=== PATIENT | male | born 1970 | race Caucasian/White ===

== ENCOUNTER 2017-10-05 06:40 | Emergency (ER) | payer OTHER ==
[2017-10-05 07:13] LABS: Basophils % (A) 0 %; Eosinophils # (A) 0.3 k/uL (0-0.7); Eosinophils % (A) 3 %; HCT 41.5 % (39.0-53.0); HGB 14.2 gm/dL (13.0-17.5); Lymphocytes # (A) 1.5 k/uL (1.0-4.8); Lymphocytes % (A) 19 %; MCH 29.3 pg (25.0-35.0); MCHC 34.2 g/dL (31.0-37.0); MCV 85.5 fL (80.0-100.0); Mean Platelet Volume 6.6; Monocytes # (A) 0.6 k/uL (0-1.0); Monocytes % (A) 7 %; Neutrophils # (A) 5.4 k/uL (1.3-7.7); Neutrophils % (A) 68 %; Platelet Count 346 k/uL (150-450); RBC 4.85 m/uL (4.30-5.90); WBC 7.9 k/uL (3.8-10.6)
[2017-10-05 07:19] LABS: ALT 52 U/L (21-72); AST 28 U/L (17-59); Albumin 4.8 g/dL (3.5-5.0); Alkaline Phosphatase 93 U/L (38-126); Amylase 41 U/L (30-110); Anion Gap 15 mmol/L; Blood Urea Nitrogen 23 mg/dL (9-20); Calcium 9.7 mg/dL (8.4-10.2); Carbon Dioxide 26 mmol/L (22-30); Chloride 103 mmol/L (98-107); Glucose 189 mg/dL (74-99); Lipase 69 U/L (23-300); Sodium 144 mmol/L (137-145); Total Bilirubin 0.7 mg/dL (0.2-1.3); Total Protein 7.8 g/dL (6.3-8.2)
--- NOTE | 2017-10-05 07:21 | XR ---
EXAMINATION TYPE: XR KUB , 2 VIEWS DATE OF EXAM ORDERED: 10/05/2017 HISTORY: Pain. COMPARISON: None. FINDINGS: The lung bases are clear. The abdominal gas pattern is normal. There is no evidence of obstruction or free air. No unusual calc ifications are seen. IMPRESSION: NO ACUTE INTRA-ABDOMINAL ABNORMALITY.
[2017-10-05 07:30] LABS: Creatine Kinase 218 U/L (55-170)
[2017-10-05] MEDS ORDERED: KETOROLAC 30 MG/ML 1 ML VIAL IVP STA (07:35)
--- NOTE | 2017-10-05 07:39 | ED ---
Back Pain HPI - General Chief Complaint: Back Pain/Injury Stated Complaint: Back pain Time Seen by Provider: 10/05/17 07:00 Source: family, EMS, RN notes reviewed Limitations: no limitations - History of Present Illness Initial Comments: This is a 47-year-old male with a benign history states he woke up in the bathroom around 5 AM this morning he started developing right CVA area pain does seem to radiate around his right lower ribs to his right upper quadrant area. He has some dry heaves and nausea some sweating no fevers chills no cough phlegm production. He does state he has a prior history kidney stones. He's not sure whether this feels like his previous history. No heart or lung disease. Denies drinking alcohol. No other modifying factors at this time. He states his pain is about 3-4/10 MD Complaint: back pain, other - Related Data Home Medications Medication Instructions Recorded Confirmed metFORMIN HCL [Glucophage Xr] 500 mg PO BID 10/05/17 10/05/17 Previous Rx's Medication Instructions Recorded Ibuprofen 800 mg PO Q6HR PRN #20 tablet 10/05/17 Tamsulosin HCl [Flomax] 0.4 mg PO DAILY #7 cap 10/05/17 Allergies Allergy/AdvReac Type Severity Reaction Status Date / Time No Known Allergies Allergy Verified 10/05/17 06:47 Review of Systems ROS Statement: Those systems with pertinent positive or pertinent negative responses have been documented in the HPI. ROS Other: All systems not noted in ROS Statement are negative. Past Medical History Past Medical History: Diabetes Mellitus History of Any Multi-Drug Resistant Organisms: None Reported Past Surgical History: Ear Surgery, Orthopedic Surgery Past Psychological History: No Psychological Hx Reported Smoking Status: Former smoker Past Alcohol Use History: None Reported Past Drug Use History: None Reported General Exam - General Exam Comments Initial Comments: This is a well-developed well-nourished awake alert oriented times 3 male Limitations: no limitations General appearance: alert, in no apparent distress Head exam: Present: atraumatic, normocephalic, normal inspection Eye exam: Present: normal appearance, PERRL, EOMI. Absent: scleral icterus, conjunctival injection, periorbital swelling ENT exam: Present: normal exam, mucous membranes moist Neck exam: Present: normal inspection. Absent: tenderness, meningismus, lymphadenopathy Respiratory exam: Present: normal lung sounds bilaterally. Absent: respiratory distress, wheezes, rales, rhonchi, stridor Cardiovascular Exam: Present: regular rate, normal rhythm, normal heart sounds. Absent: systolic murmur, diastolic murmur, rubs, gallop, clicks GI/Abdominal exam: Present: soft, normal bowel sounds. Absent: distended, tenderness, guarding, rebound, rigid Extremities exam: Present: normal inspection, full ROM, normal capillary refill. Absent: tenderness, pedal edema, joint swelling, calf tenderness Back exam: Present: normal inspection Neurological exam: Present: alert, oriented X3, CN II-XII intact Psychiatric exam: Present: normal affect, normal mood Skin exam: Present: warm, dry, intact, normal color. Absent: rash Course Vital Signs 10/05/17 10/05/17 06:43 09:01 Temperature 97 F L Pulse Rate 57 L 56 L Respiratory 20 16 Rate Blood Pressure 151/92 148/70 O2 Sat by Pulse 99 97 Oximetry Medical Decision Making - Medical Decision Making The patient remains pain-free since his medication. The presentation is likely secondary to a kidney stone or renal colic patient be discharged on appropriate medication he is a follow-up with his doctor and return when necessary - Lab Data Result diagrams: 10/05/17 06:03 10/05/17 06:03 Lab Results 10/05/17 10/05/17 10/05/17 Range/Units 06:03 06:03 06:03 WBC 7.9 (3.8-10.6) k/uL RBC 4.85 (4.30-5.90) m/uL Hgb 14.2 (13.0-17.5) gm/dL Hct 41.5 (39.0-53.0) % MCV 85.5 (80.0-100.0) fL MCH 29.3 (25.0-35.0) pg MCHC 34.2 (31.0-37.0) g/dL RDW 13.0 (11.5-15.5) % Plt Count 346 (150-450) k/uL Neutrophils % 68 % Lymphocytes % 19 % Monocytes % 7 % Eosinophils % 3 % Basophils % 0 % Neutrophils # 5.4 (1.3-7.7) k/uL Lymphocytes # 1.5 (1.0-4.8) k/uL Monocytes # 0.6 (0-1.0) k/uL Eosinophils # 0.3 (0-0.7) k/uL Basophils # 0.0 (0-0.2) k/uL Sodium 144 (137-145) mmol/L Potassium 4.0 (3.5-5.1) mmol/L Chloride 103 (98-107) mmol/L Carbon Dioxide 26 (22-30) mmol/L Anion Gap 15 mmol/L BUN 23 H (9-20) mg/dL Creatinine 0.94 (0.66-1.25) mg/dL Est GFR (CKD-EPI)AfAm >90 (>60 ml/min/1.73 sqM) Est GFR (CKD-EPI)NonAf >90 (>60 ml/min/1.73 sqM) Glucose 189 H (74-99) mg/dL Plasma Lactic Acid Garcia (0.7-2.0) mmol/L Calcium 9.7 (8.4-10.2) mg/dL Magnesium (1.6-2.3) mg/dL Total Bilirubin 0.7 (0.2-1.3) mg/dL AST 28 (17-59) U/L ALT 52 (21-72) U/L Alkaline Phosphatase 93 (38-126) U/L Total Creatine Kinase 218 H (55-170) U/L CK-MB (CK-2) 2.7 H* (0.0-2.4) ng/mL CK-MB (CK-2) Rel Index 1.2 Troponin I <0.012 (0.000-0.034) ng/mL Total Protein 7.8 (6.3-8.2) g/dL Albumin 4.8 (3.5-5.0) g/dL Amylase 41 (30-110) U/L Lipase 69 (23-300) U/L Urine Color Urine Appearance (Clear) Urine pH (5.0-8.0) Ur Specific [place] (1.001-1.035) Urine Protein (Negative) Urine Glucose (UA) (Negative) Urine Ketones (Negative) Urine Blood (Negative) Urine Nitrite (Negative) Urine Bilirubin (Negative) Urine Urobilinogen (<2.0) mg/dL Ur Leukocyte Esterase (Negative) 10/05/17 10/05/17 10/05/17 Range/Units 06:03 06:03 09:08 WBC (3.8-10.6) k/uL RBC (4.30-5.90) m/uL Hgb (13.0-17.5) gm/dL Hct (39.0-53.0) % MCV (80.0-100.0) fL MCH (25.0-35.0) pg MCHC (31.0-37.0) g/dL RDW (11.5-15.5) % Plt Count (150-450) k/uL Neutrophils % % Lymphocytes % % Monocytes % % Eosinophils % % Basophils % % Neutrophils # (1.3-7.7) k/uL Lymphocytes # (1.0-4.8) k/uL Monocytes # (0-1.0) k/uL Eosinophils # (0-0.7) k/uL Basophils # (0-0.2) k/uL Sodium (137-145) mmol/L Potassium (3.5-5.1) mmol/L Chloride (98-107) mmol/L Carbon Dioxide (22-30) mmol/L Anion Gap mmol/L BUN (9-20) mg/dL Creatinine (0.66-1.25) mg/dL Est GFR (CKD-EPI)AfAm (>60 ml/min/1.73 sqM) Est GFR (CKD-EPI)NonAf (>60 ml/min/1.73 sqM) Glucose (74-99) mg/dL Plasma Lactic Acid Garcia 1.3 (0.7-2.0) mmol/L Calcium (8.4-10.2) mg/dL Magnesium 2.1 (1.6-2.3) mg/dL Total Bilirubin (0.2-1.3) mg/dL AST (17-59) U/L ALT (21-72) U/L Alkaline Phosphatase (38-126) U/L Total Creatine Kinase (55-170) U/L CK-MB (CK-2) (0.0-2.4) ng/mL CK-MB (CK-2) Rel Index Troponin I (0.000-0.034) ng/mL Total Protein (6.3-8.2) g/dL Albumin (3.5-5.0) g/dL Amylase (30-110) U/L Lipase (23-300) U/L Urine Color Yellow Urine Appearance Clear (Clear) Urine pH 5.0 (5.0-8.0) Ur Specific [place] 1.023 (1.001-1.035) Urine Protein Negative (Negative) Urine Glucose (UA) 4+ H (Negative) Urine Ketones Negative (Negative) Urine Blood Negative (Negative) Urine Nitrite Negative (Negative) Urine Bilirubin Negative (Negative) Urine Urobilinogen <2.0 (<2.0) mg/dL Ur Leukocyte Esterase Negative (Negative) - EKG Data -: EKG Interpreted by Ne EKG shows normal: sinus rhythm (Sinus bradycardia rate of 57 first-degree AV block WV interval to 44 QRS 102 QT since QTC of 4:30/[address]-T wave changes.) - Radiology Data Radiology results: report reviewed (Did review the imaging and reports no acute findings.), image reviewed Disposition Clinical Impression: Renal colic on right side, Flank pain Disposition: HOME SELF-CARE Condition: Good Instructions: Renal Colic (ED) Prescriptions: Ibuprofen 800 mg PO Q6HR PRN #20 tablet PRN Reason: Pain Tamsulosin HCl [Flomax] 0.4 mg PO DAILY #7 cap Is patient prescribed a controlled substance at d/c from ED?: No Referrals: Jeremy Simeon DO [Primary Care Provider] - 1-2 days
[2017-10-05 07:43] LABS: Troponin I <0.012 ng/mL (0.000-0.034)
[2017-10-05 07:47] LABS: Creatine Kinase MB 2.7 ng/mL (0.0-2.4)
--- NOTE | 2017-10-05 07:47 | XR ---
EXAMINATION TYPE: XR chest 2V DATE OF EXAM: 10/05/2017 HISTORY: cough. REFERENCE: Previous study dated 08/14/2013. FINDINGS: The lungs are mildly overinflated. The lungs are clear. Pleural space are clear. The heart is not enlarged. IMPRESSION: PLEASE CORRELATE FOR COPD.
[2017-10-05 09:02] VITALS: BP 148/70; PULSE 56; RESP 16
[2017-10-05 09:18] LABS: Appearance,Urine Clear (Clear); Bilirubin,Urine Negative (Negative); Blood,Urine Negative (Negative); Color,Urine Yellow; Glucose,Urine (UA) 4+ (Negative); Ketones,Urine Negative (Negative); Leukocyte Esterase,Urine Negative (Negative); Nitrite,Urine Negative (Negative); Protein,Urine Negative (Negative); Specific Gravity,Urine 1.023 (1.001-1.035); Urobilinogen,Urine <2.0 mg/dL (<2.0)
[2017-10-05 10:01] VITALS: TEMP 97.8
== END 2017-10-05 09:59 | disposition home or self-care (01) ==
LOC: EC 06:40
DX: N23 Unspecified renal colic (principal); I44.0 Atrioventricular block, first degree; R00.1 Bradycardia, unspecified; E11.9 Type 2 diabetes mellitus without complications; Z87.891 Personal history of nicotine dependence; Z79.84 Long term (current) use of oral hypoglycemic drugs
CPT/HCPCS: 36415; 93005; 80053; 82150; 82550; 82553; 83605; 83690; 83735; 84484; 85025; 81003; 71046; 74018; 99284; 96374; J1885

== ENCOUNTER 2017-10-16 08:01 | Day surgery (SDC) | payer OTHER ==
[2017-10-10 14:22] VITALS: BMI 26.9
--- NOTE | 2017-10-16 07:44 | P.GSHP ---
History of Present Illness H&P Date: 10/16/17 Chief Complaint: Right upper quadrant pain This is a 47-year-old male with complaints of right upper quadrant pain. Patient presents today for laparoscopic ostectomy. His recent HIDA scan shows an abnormal ejection fraction consistent with biliary dyskinesia and chronic cholecystitis. Past Medical History Past Medical History: Diabetes Mellitus Additional Past Medical History / Comment(s): gallstones History of Any Multi-Drug Resistant Organisms: None Reported Past Surgical History: Ear Surgery, Orthopedic Surgery Additional Past Surgical History / Comment(s): lt arm sx-has 2 steel plates. bone marrow aspiration from hip to lt arm. rt hydrocele sx Past Anesthesia/Blood Transfusion Reactions: Previous Problems w/ Anesthesia Additional Past Anesthesia/Blood Transfusion Reaction / Comment(s): SLOW TO WAKE UP FROM ANESTHESIA Smoking Status: Former smoker - Past Family History Father Family Medical History: Cancer Sister(s) Family Medical History: Cancer Medications and Allergies Home Medications Medication Instructions Recorded Confirmed Type Ibuprofen 800 mg PO Q6HR PRN #20 tablet 10/05/17 10/10/17 Rx metFORMIN HCL [Glucophage Xr] 500 mg PO BID 10/05/17 10/10/17 History Allergies Allergy/AdvReac Type Severity Reaction Status Date / Time No Known Allergies Allergy Verified 10/10/17 14:15 Surgical - Exam - General well developed, no distress - Eyes PERRL - ENT normal pinna - Neck no masses - Respiratory normal expansion - Cardiovascular Rhythm: regular - Abdomen Abdomen: soft, non tender Assessment and Plan Assessment: Right upper quadrant pain Chronic cholecystitis We'll perform laparoscopic cholecystectomy.
[~2017-10-16 08:01] MED LIST: DEXAMETHASONE SOD PHOSPHATE 10 MG/ML 1 ML VIAL IV ONE; HEPARIN SODIUM,PORCINE 5,000 UNIT/ML 1 ML VIAL SQ ONE; HYDROmorphone 0.5 MG/0.5 ML SYRINGE IVP PRN; LACTATED RINGERS 1,000 ML IV SCH; MIDAZOLAM 2 MG/2 ML VIAL IV PRN; ONDANSETRON 4 MG/2 ML VIAL IVP ONE; ceFAZolin IN SWFI 2 GM/20 ML SYRINGE IVP ONE
[2017-10-16 08:28] LABS: Glucose,Whole Blood 121 mg/dL (75-99)
[2017-10-16] MEDS ORDERED: LIDOCAINE 1% 20 ML VIAL (10MG/ML) FOR IV START INTRADERMA ONE (08:30)
[2017-10-16] MEDS ORDERED: fentaNYL (PF) 50 MCG/ML 2 ML AMP ONE (09:24)
[2017-10-16] MEDS ORDERED: LIDOCAINE 1% INJ 10MG/ML (20 ML MDV) ONE (09:24)
[2017-10-16] MEDS ORDERED: NEOSTIGMINE 1 MG/ML 10 ML VIAL ONE (09:24)
[2017-10-16] MEDS ORDERED: KETOROLAC 30 MG/ML 1 ML VIAL ONE (09:24)
[2017-10-16] MEDS ORDERED: ROCURONIUM BROMIDE 10 MG/ML 10 ML VIAL IV ONE (09:24)
[2017-10-16] MEDS ORDERED: GLYCOPYRROLATE 0.2 MG/ML 2 ML VIAL ONE (09:24)
[2017-10-16] MEDS ORDERED: SUCCINYLCHOLINE CHLORIDE 100 MG/5 ML SYR IV ONE (09:24)
[2017-10-16] MEDS ORDERED: BUPIVACAINE (PF) 0.25% 30 ML VIAL SQ ONE (09:44)
--- NOTE | 2017-10-16 10:03 | P.OP ---
Date of Procedure: 10/16/17 Preoperative Diagnosis: Cholecystitis Cholelithiasis Postoperative Diagnosis: Cholecystitis Cholelithiasis Procedure(s) Performed: Laparoscopic cholecystectomy Anesthesia: CHASITY Surgeon: Dusty Haq Estimated Blood Loss (ml): 5 Pathology: other (Gallbladder) Condition: stable Disposition: PACU Description of Procedure: The patient was placed on the operating table. The patient received a general endotracheal tube anesthesia. The patients abdomen was prepped and draped in the usual sterile fashion. Through an infraumbilical stab incision, the fascia of the anterior abdominal wall was grasped with a pair of Kochers and then the Veress needle was placed in the peritoneal cavity. Position of the Veress needle was confirmed with positive drop test. The abdomen was then insufflated. After adequate insufflation, the 10 mm trocar was placed in the peritoneal cavity. Following this the laparoscope was placed in the peritoneal cavity. The patient was placed in the head-up, right side up position and then a 5 mm trocar was placed in the right lateral and right subcostal position under direct visualization. A 8 mm trocar was placed in the epigastric position. The gallbladder was grasped in the fundus and infundibulum. Traction on the gallbladder was placed in the lateral and the cephalad positions. The triangle of Calot was visualized.. The cystic duct was bluntly dissected until the union of the cystic duct and common bile duct was seen. The cystic duct was then divided and sealed with the Harmonic scissors. A PDS Endoloop was then placed throughout the cystic duct stump. The cystic artery divided and sealed with the Harmonic scissors. The gallbladder was then removed from the liver bed using Harmonic scissors. The gallbladder was then extracted through the epigastric port site. Operative field was checked for any bleeding spots and Harmonic scissors was used to coagulate the liver bed. The abdomen was irrigated. The trocars were removed. The skin was closed using interrupted 3-0 Vicryl suture. Dermabond dressing were applied. The patient tolerated the procedure well.
[2017-10-16 10:33] VITALS: TEMP 98.2
[2017-10-16 10:36] VITALS: RESP 16
[2017-10-16 10:56] LABS: Glucose,Whole Blood 137 mg/dL (75-99)
[2017-10-16] MEDS ORDERED: HYDROcodone/APAP 7.5-325MG 1 EACH TAB PO ONE (12:09)
[2017-10-16 12:16] VITALS: BP 145/77; PULSE 83
== END 2017-10-16 12:45 | disposition home or self-care (01) ==
LOC: OR 08:01
PROVIDERS: ATTEND Surgery
DX: K80.10 Calculus of gallbladder with chronic cholecystitis without obstruction (principal); E11.9 Type 2 diabetes mellitus without complications; Z79.84 Long term (current) use of oral hypoglycemic drugs; Z87.891 Personal history of nicotine dependence
CPT/HCPCS: 88304; 47562; J1644; J1100; J2710; J2405; J2001; J3010; J1885; J0330; J0690

== ENCOUNTER → 2019-03-10 | Outpatient (CLI) | payer OTHER ==
--- NOTE | 2019-03-11 09:35 | XR ---
EXAMINATION TYPE: XR shoulder limited LT DATE OF EXAM: 03/10/2019 COMPARISON: None HISTORY: Right shoulder pain and right hip pain TECHNIQUE: 2 view right shoulder FINDINGS: Humeral head articulates with the glenoid. There is downward sloping of the acromion. On on e image there is loss of the humeral acromial joint space. Rotator cuff tear should be considered. Ad ditional workup can be performed with MRI. IMPRESSION: 1. Findings suggestive for rotator cuff tear. MRI of the shoulder can be performed for confirmation.
--- NOTE | 2019-03-11 09:36 | XR ---
EXAMINATION TYPE: XR Hip Complete RT DATE OF EXAM: 03/10/2019 COMPARISON: None HISTORY: Right hip pain TECHNIQUE: 2 view right hip FINDINGS: Femoral head articulate with the acetabulum. Joint space is preserved. No acute fractures a re evident. Note is made of CAM deformity. IMPRESSION: 1. No acute osseous abnormality right hip.
== END | disposition home or self-care (01) ==
LOC: RADXRYALE 16:20
PROVIDERS: ATTEND Family Medicine
DX: M25.511 Pain in right shoulder (principal); M25.551 Pain in right hip
CPT/HCPCS: 73502

== ENCOUNTER → 2019-05-14 | Outpatient (CLI) | payer OTHER ==
--- NOTE | 2019-05-14 15:00 | MR ---
EXAMINATION TYPE: MR shoulder RT wo con DATE OF EXAM: 05/14/2019 2:32 PM COMPARISON: NONE HISTORY: Rt shoulder pain/bursitis TECHNIQUE: Multiplanar multispin echo imaging of the right shoulder was performed. FINDINGS: Rotator cuff : Partial complete tear of the supraspinatus tendon at the critical zone with a fluid-fi lled gap of 8 mm. There is also partial tear noted of the subscapularis tendon several fibers being i ntact. No evidence for retracted tear or muscular atrophy at this time. The infraspinatus tendon is i ntact. There is superimposed chronic tendinopathy of the supraspinatus tendon with increased signal a nd edema noted. Bursa: No bursal effusion or thickening is seen. Musculature: There is no muscular tear, contusion, or atrophy. Acromioclavicular joint there is evidence of AC joint arthropathy being moderate to severe in degree. Small subacromial spurs noted resulting in subacromial impingement. Osseous structures : Mild cystic degenerative changes seen of the greater humeral tuberosity. There a re no fractures or regions of abnormal bone marrow signal intensity. Long biceps tendon : The biceps tendon is normally situated within the bicipital groove. There is ten dinosis and partial tear of the intra-articular portion of the biceps tendon without evidence for com plete tear at this time. Glenohumeral Joint fluid : Small joint effusion noted. Cartilage and Bone : No focal hyaline cartilag e defects are noted. No Hill-Sachs, reverse Hill-Sachs, or bony Bankart lesions are seen. Labrum : There are no SLAP or soft tissue Bankart lesions. No paralabral cysts are seen. OTHER FINDINGS : none IMPRESSION: 1. Partial complete tear of the supraspinatus tendon at the critical zone with a fluid-filled gap of 8 mm. There is also partial tear noted of the subscapularis tendon several fibers being intact. 2.There is tendinosis and partial tear of the intra-articular portion of the biceps tendon without ev idence for complete tear at this time.
== END ==
LOC: RADMRIMAIN 13:43
PROVIDERS: ATTEND Orthopaedic Surgery
DX: M75.121 Complete rotator cuff tear or rupture of right shoulder, not specified as traumatic (principal); M75.111 Incomplete rotator cuff tear or rupture of right shoulder, not specified as traumatic

== ENCOUNTER 2020-11-27 12:09 | Emergency (ER) | payer OTHER ==
[2020-11-27 12:39] VITALS: BP 123/81; PULSE 80; RESP 20; TEMP 98.1
--- NOTE | 2020-11-27 13:23 | ED ---
General Adult HPI - General Chief complaint: Skin/Abscess/Foreign Body Stated complaint: Sore on buttock Time Seen by Provider: 11/27/20 12:40 Source: patient, RN notes reviewed, old records reviewed Mode of arrival: ambulatory Limitations: no limitations - History of Present Illness Initial comments: This is a 50-year-old male presents emergency Department stating he has some sort of rash on his butt and it started last night he doesn't know what it's from. Patient states it's a 1 out of 10 in pain. Patient thought might be an abscess he decided come to the emergency department to get it evaluated. Patient states he does not remember any injury but he was working outside quite a bit and he may have done something that he doesn't recall. Patient denies any fever chills per patient as any difficulty having a bowel movement. Patient denies any other symptoms at this time. - Related Data Home Medications Medication Instructions Recorded Confirmed metFORMIN HCL [Glucophage Xr] 500 mg PO BID 10/05/17 10/16/17 Previous Rx's Medication Instructions Recorded Ibuprofen 800 mg PO Q6HR PRN #20 tablet 10/05/17 Docusate [Colace] 100 mg PO BID #20 capsule 10/16/17 HYDROcodone/APAP 7.5-325MG [[place] 1 each PO Q4H PRN #16 tab 10/16/17 7.5] Allergies Allergy/AdvReac Type Severity Reaction Status Date / Time No Known Allergies Allergy Verified 11/27/20 12:39 Review of Systems ROS Statement: Those systems with pertinent positive or pertinent negative responses have been documented in the HPI. ROS Other: All systems not noted in ROS Statement are negative. Past Medical History Past Medical History: Diabetes Mellitus Additional Past Medical History / Comment(s): gallstones History of Any Multi-Drug Resistant Organisms: None Reported Past Surgical History: Ear Surgery, Orthopedic Surgery Additional Past Surgical History / Comment(s): lt arm sx-has 2 steel plates. bone marrow aspiration from hip to lt arm. rt hydrocele sx Past Anesthesia/Blood Transfusion Reactions: Previous Problems w/ Anesthesia Additional Past Anesthesia/Blood Transfusion Reaction / Comment(s): SLOW TO WAKE UP FROM ANESTHESIA Past Psychological History: No Psychological Hx Reported Smoking Status: Never smoker Past Alcohol Use History: None Reported Past Drug Use History: None Reported - Past Family History Father Family Medical History: Cancer Sister(s) Family Medical History: Cancer General Exam - General Exam Comments Initial Comments: GENERAL Patient is well-developed and well-nourished. Patient is in mild distress. EYES Patient's pupils are equal and round. Extraocular motion is intact SKIN Patient has a superficial abrasion on the right buttocks. It measures about 1 cm wide and 4 cm long. There is no fluctuance to it there is no signs of infection. NEURO The patient is alert and oriented 3 PYSCH Patient has normal interpersonal interactions. MUSCULOSKELETAL All 4 extremities have full range of motion. Limitations: no limitations Course Vital Signs 11/27/20 12:37 Temperature 98.1 F Pulse Rate 80 Respiratory 20 Rate Blood Pressure 123/81 O2 Sat by Pulse 97 Oximetry Disposition Clinical Impression: Abrasion of buttock Disposition: HOME SELF-CARE Condition: Good Instructions (If sedation given, give patient instructions): Abrasion (ED) Additional Instructions: Patient should apply bacitracin twice a day to the abrasion. Is patient prescribed a controlled substance at d/c from ED?: No Referrals: Jeremy Simeon DO [Primary Care Provider] - 1-2 days Time of Disposition: 13:23
[2020-11-27] MEDS ORDERED: BACITRACIN OINT 1 EACH PACKET TOPICAL ONE (13:28)
== END 2020-11-27 13:35 | disposition home or self-care (01) ==
LOC: EC 12:09
DX: S30.810A Abrasion of lower back and pelvis, initial encounter (principal); E11.9 Type 2 diabetes mellitus without complications; Z79.84 Long term (current) use of oral hypoglycemic drugs; X58.XXXA Exposure to other specified factors, initial encounter
CPT/HCPCS: 99282

== ENCOUNTER → 2021-08-08 | Outpatient (CLI) | payer OTHER ==
--- NOTE | 2021-08-08 18:09 | XR ---
EXAMINATION TYPE: XR knee complete LT DATE OF EXAM: 08/08/2021 COMPARISON: NONE HISTORY: Knee pain TECHNIQUE: 3 views FINDINGS: There is some spurring of the femoral and tibial condyles. There is spurring on the patella . There is a mild knee joint effusion. No fracture nor dislocation. IMPRESSION: Osteoarthritis. Mild knee joint effusion. No fracture seen.
== END | disposition home or self-care (01) ==
LOC: RADXRMAIN 17:36
PROVIDERS: ATTEND Emergency Medicine
DX: M17.12 Unilateral primary osteoarthritis, left knee (principal); M25.462 Effusion, left knee

== ENCOUNTER 2021-08-19 20:43 | Emergency (ER) | payer OTHER ==
[2021-08-19 21:09] VITALS: BP 125/8; PULSE 99; RESP 22; TEMP 98.4
[2021-08-19 21:32] LABS: Appearance,Urine Clear (Clear); Bilirubin,Urine Negative (Negative); Blood,Urine Negative (Negative); Color,Urine Yellow; Glucose,Urine (UA) 3+ (Negative); Ketones,Urine 1+ (Negative); Leukocyte Esterase,Urine Negative (Negative); Nitrite,Urine Negative (Negative); Protein,Urine Trace (Negative); Specific Gravity,Urine 1.031 (1.001-1.035); Urobilinogen,Urine <2.0 mg/dL (<2.0)
== END 2021-08-19 23:44 | disposition left against medical advice (07) ==
LOC: EC 20:43
DX: Z53.21 Procedure and treatment not carried out due to patient leaving prior to being seen by health care provider (principal); N28.9 Disorder of kidney and ureter, unspecified
CPT/HCPCS: 81003; 99499

== ENCOUNTER → 2022-02-22 | Outpatient (CLI) | payer OTHER ==
--- NOTE | 2022-02-22 17:36 | XR ---
EXAMINATION TYPE: XR hand complete RT DATE OF EXAM: 02/22/2022 COMPARISON: NONE HISTORY: Laceration. Pain and swelling. TECHNIQUE: 3 views FINDINGS: Detail limited by the splint. I see no fracture nor dislocation. There is some spurring at the PIP joint of the little finger. No focal bone destruction. The metacarpals are intact. Carpal bon es are intact. IMPRESSION: No acute bony abnormality. No sign of osteomyelitis.
== END | disposition home or self-care (01) ==
LOC: RADXRMAIN 17:13
PROVIDERS: ATTEND Emergency Medicine
DX: S61.402D Unspecified open wound of left hand, subsequent encounter (principal)

== ENCOUNTER → 2023-05-28 | Outpatient (CLI) | payer OTHER ==
--- NOTE | 2023-05-28 14:59 | XR ---
EXAMINATION TYPE: XR shoulder complete RT DATE OF EXAM: 05/28/2023 CLINICAL HISTORY: Right shoulder pain TECHNIQUE: Three views of the right shoulder are obtained. COMPARISON: None. FINDINGS: There is no acute fracture/dislocation evident in the right shoulder. Mild to moderate gabriella rowing and mild spurring at the acromioclavicular and glenohumeral joints is seen. High positioned hu meral head raises concern for chronic rotator cuff tear. The visualized ribs are intact and unremarka ble. IMPRESSION: As above.
== END | disposition home or self-care (01) ==
LOC: RADXRYALE 14:32
PROVIDERS: ATTEND Physician Assistant
DX: M25.511 Pain in right shoulder (principal)